=== PATIENT | female | born 1970 | race Caucasian/White ===

== ENCOUNTER 2016-10-15 07:41 | Observation (INO) | payer OTHER ==
[2016-09-30 14:23] VITALS: BMI 36.0
--- NOTE | 2016-09-30 15:06 | PAT Medication Instructions ---
Service Date Sep 30, 2016. 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 Instructions For Your Scheduled Surgery Methylprednisolone (Medrol), 4 MG PO UD (for neck pain; pt thinks to be completed prior to surgery) - Hold the following medications the morning of surgery: Fwxjmnnadmxuy-Tqycceitpvpyp-Zg (Tylenol Sinus Congestion), 1 TAB PO PRN Cholecalciferol (Vitamin D3), 1 TAB PO QAM Phentermine Hcl (Adipex P), 37.5 MG PO QAM Acetazolamide (Diamox), 1,000 MG PO QAM - Take the following medications the morning of surgery with a sip of water: [Proair Hfa], 2 PUFFS INH QID PRN for RN Levothyroxine Sodium (Levothyroxine Sodium), 1 TAB PO QAM Hydrocodone/Acetaminophen 5MG/325MG ([place] 5MG/325MG), 1 TABLET PO Q4H PRN for N (okay to take up to 4 hours prior to surgery if needed) Oxycodone Ir (Roxicodone Ir), 5 MG PO Q4H PRN for Severe Pain (okay to take up to 4 hours prior to surgery if needed) - Take the following medications as scheduled the night before surgery: [Proair Hfa], 2 PUFFS INH QID PRN for RN Oeikysumfrflz-Jjmvgnghqrjae-Ww (Tylenol Sinus Congestion), 1 TAB PO PRN Omeprazole (Prilosec), 20 MG PO QPM Citalopram Hydrobromide (Celexa), 40 MG PO QPM Hydrocodone/Acetaminophen 5MG/325MG ([place] 5MG/325MG), 1 TABLET PO Q4H PRN for N Oxycodone Ir (Roxicodone Ir), 5 MG PO Q4H PRN for Severe Pain If you have any questions please call us at [phone] (Neris Bansal PA-C) or [phone] or [phone]
[2016-09-30 15:52] LABS: BASO % 0.6 %; BASO ABS # 0.03 K/uL (0-0.2); COMPLETE YES; EOS % 2.5 %; HEMATOCRIT 38.2 % (37-47); IG% 0.2 %; LYMPH % 23.5 %; LYMPH ABS # 1.13 K/uL (1.2-3.4); MEAN CELL VOLUME 80.1 fL (80-100); MEAN CORPUSCULAR HEMOGLOBIN 23.5 pg (25-34); MEAN CORPUSCULAR HGB CONC 29.3 g/dl (32-36); MEAN PLATELET VOLUME 10.3 fL (7.4-10.4); MONO % 7.9 %; NEUT % 65.3 %; PLATELET COUNT 288 K/uL (130-400); RED BLOOD COUNT 4.77 M/uL (4.2-5.4)
[2016-09-30 15:53] LABS: URINE APPEARANCE CLEAR (CLEAR); URINE BILIRUBIN NEG (NEG); URINE COLOR DK YELLOW; URINE NITRITE NEG (NEG); URINE SPECIFIC GRAVITY 1.023 (1.000-1.030); UROBILINOGEN NEG (NEG)
--- NOTE | 2016-09-30 15:57 | DIAGNOSTIC IMAGING REPORT ---
CHEST 2 VIEWS ROUTINE CLINICAL HISTORY: PAT preoperative evaluation COMPARISON STUDY: No previous studies for comparison. FINDINGS: The bones soft tissues and hemidiaphragms are normal. The cardiomediastinal silhouette is normal. The lungs are clear. The pulmonary vasculature is normal. IMPRESSION: Negative chest. Electronically signed by: Bienvenido Oconnell M.D. 09/30/2016 3:56 PM Dictated Date/Time: 09/30/2016 3:56 PM
[2016-09-30 16:02] LABS: CREATININE 1.2 mg/dl (0.60-1.20)
[2016-09-30 16:03] LABS: BUN/CREATININE RATIO 16.8 (10-20); POTASSIUM 3.9 mmol/L (3.5-5.1)
[2016-09-30 16:06] LABS: MANUAL MICROSCOPIC REQUIRED? NO; REVIEW REQ? NO
[2016-10-15] VITALS (13 sets, daily range): BP systolic 110–136; BP diastolic 72–99; PULSE 58–94; TEMP 36.5–36.7; O2SAT 93–100; Ht 157.5 cm; Wt 90.5 kg
[~2016-10-15] VITALS: Ht 157.5 cm; Wt 90.5 kg
[~2016-10-15 07:41] MED LIST: ACET500C35 PO; CHOL1000 PO; CITA40TA12 PO; CLINDAMYCIN 600 MG/54 ML D5W IV SCH; CLINDAMYCIN PHOS 150 MG/ML 2 ML VIAL IV SCH; CeleBREX 200 MG CAP PO SCH; HYDR-5688 PO; LACTATED RINGER'S 1000ML 1,000 ML IV SCH; LEVO150T9 PO; METH1TAB81 PO; OXYC1TAB3 PO; PHEN1TAB PO; PHEN37.585 PO; PREGABALIN 75 MG CAP PO SCH; PRLSR20 PO; PROAIR HFA INH
[2016-10-15] MEDS ORDERED: ATROPINE SULFATE 0.1 MG/ML 5ML SYR IV PRN (09:15)
[2016-10-15] MEDS ORDERED: ONDANSETRON INJ 2 MG/ML 2 ML VIAL IV PRN ×2 (09:15→12:00)
[2016-10-15] MEDS ORDERED: EpHEDrine SULFATE INJ 50 MG/ML AMP IV PRN (09:15)
[2016-10-15] MEDS ORDERED: PHENYLEPHRINE 100MCG/ML 5ML SYR IV PRN (09:15)
[2016-10-15] MEDS ORDERED: MIDAZOLAM HCL 1 MG/ML 2ML VIAL ONE (09:17)
[2016-10-15] MEDS ORDERED: FENTANYL CITRATE INJ 50 MCG/1 ML 2 ML VIAL ONE ×3 (09:17→10:36)
--- NOTE | 2016-10-15 09:33 | History and Physical ---
History & Physical Date Oct 15, 2016. Chief Complaint neck pain and R arm pain/numbness History of Present Illness The patient is a 46 year old female with complaints of above that began beginning of August with severe arm pain. she has a hx of chronic neck pain that was treated by Dr. Rachel of pain management in past, but radicular symptoms were more recent and prompted surgical eval. She has a hx of chronic weakness in R hand after ORIF of distal humerus fx as child. She denies L arm pain or numbness. no clear myelopathic symptoms. no balance issues. MRI shows large central and eccentric R HNP C5-6 with paracentral left C4-5 HNP causing foraminal stenosis. she has no myelomalacia. Hx of thyroidectomy. Past Medical/Surgical History GERD hypothyroidism hx of thyroid CA s/p thyroidectomy vit D defic hx of gastric bypass Hyster Tonsillectomy Asthma ORIF RUE arline partial ethmoidectomy nephrolithiasis anemia depression Additional History Hepatic Disease: No Endocrine Disorder: Yes Kidney Disease: No Hypertension: No Heart Disease: No Bleeding Tendencies: No Infectious Diseases: No Allergies Coded Allergies: Cephalexin (Verified Allergy, Unknown, HIVES HOT AND ITCHY, 10/15/16) Ciprofloxacin (Verified Allergy, Unknown, HIVES HOT ITCHY, 10/15/16) Penicillins (Verified Allergy, Unknown, HIVES, HOT AND ITCHY, 10/15/16) Prednisone (Verified Allergy, Unknown, HIGH DOSES-HIVES AND HOT ITCHY ALL OVER, 10/15/16) Home Medications Scheduled Acetazolamide (Diamox), 1,000 MG PO QAM Cholecalciferol (Vitamin D3), 1 TAB PO QAM Citalopram Hydrobromide (Celexa), 40 MG PO QPM Levothyroxine Sodium (Levothyroxine Sodium), 1 TAB PO QAM Omeprazole (Prilosec), 20 MG PO QPM Phentermine Hcl (Adipex P), 37.5 MG PO QAM Okrxcmaagtbes-Rqcitcmiavwuj-Gp (Tylenol Sinus Congestion), 1 TAB PO PRN Scheduled PRN Hydrocodone/Acetaminophen 5MG/325MG ([place] 5MG/325MG), 1 TABLET PO Q4H PRN for N Oxycodone Ir (Roxicodone Ir), 5 MG PO Q4H PRN for Severe Pain [Proair Hfa], 2 PUFFS INH QID PRN for RN Physical Examination Skin: warm/dry Eyes: normal inspection ENT: normal ENT inspection (thyroidectomy scar just above clavicle at base of neck-below planned ACDF incision-skin supple in neck), pharynx normal Head: normocephalic, atraumatic Neck: supple, no adenopathy, trachea midline Respiratory/Chest: lungs clear Cardiovascular: regular rate, rhythm Back: normal inspection Extremities: normal inspection (scar R elbow with mild flexion contracture) Neurologic/Psych: no motor/sensory deficits (except numbness in ulnar digits RUE, trace weakness in wrist extension on left and positive spurlings to left), alert, normal reflexes, oriented x 3 Diagnosis C4-6 HNP with RUE radiculopathy Plan of Treatment C4-6 ACDF, risk of complications due to prior thyroidectomy reviewed but tissue over incision appears healthy
[2016-10-15] MEDS ORDERED: BACITRACIN 50000 UNIT VIAL ONE (09:38)
[2016-10-15] MEDS ORDERED: THROMBIN 5000 UNITS KIT ONE ×2 (09:38→10:15)
[2016-10-15] MEDS ORDERED: HYDROmorphone INJ 2 MG/ML SYR/VIAL ONE ×2 (10:27→11:24)
[2016-10-15] MEDS ORDERED: DEXAMETHASONE SOD INJ 4 MG/ML VIAL ONE (10:38)
[2016-10-15] MEDS ORDERED: ROCURONIUM BROMIDE 10 MG/ML 5 ML VIAL ONE (10:38)
[2016-10-15] MEDS ORDERED: ONDANSETRON INJ 2 MG/ML 2 ML VIAL ONE ×2 (10:38→11:24)
[2016-10-15] MEDS ORDERED: PROPOFOL IV EMULSION 10 MG/ML 20 ML VIAL IV ONE (10:38)
[2016-10-15] MEDS ORDERED: LIDOCAINE HCL 2% 2 ML VIAL (20MG/ML) ONE (10:38)
[2016-10-15] MEDS ORDERED: PHENYLEPHRINE 100MCG/ML 5ML SYR ONE ×2 (10:38→11:24)
[2016-10-15] MEDS ORDERED: FLOSEAL HEMOSTATIC MATRIX 10ML TOP ONE (11:20)
[2016-10-15] MEDS ORDERED: GLYCOPYRROLATE INJ 0.2 MG/ML VIAL ONE (11:24)
[2016-10-15] MEDS ORDERED: NEOSTIGMINE METHYLSULFATE 1 MG/ML 10ML VIAL ONE (11:24)
[2016-10-15] MEDS: HYDROmorphone INJ 2 MG/ML SYR/VIAL IV PRN ×6 (11:40→12:15)
--- NOTE | 2016-10-15 11:50 | [facility] Post Operative Brief Note ---
Immediate Operative Summary Operative Date Oct 15, 2016. Pre-Operative Diagnosis C4-6 Herniated Nucleus Pulposus with Right Upper Extremity Radiculopathy Post-Operative Diagnosis C4-6 Herniated Nucleus Pulposus with Right Upper Extremity Radiculopathy Procedure(s) Performed C4-C5, C5-C6 Anterior Cervical Discectomy and Fusion, Allograft and Peek Surgeon Dr Eloy Sandoval Curtain Worker Surgeon(s) Keith Mishra PA-C Estimated Blood Loss 20 cc Findings dict Specimens none per surgeon
--- NOTE | 2016-10-15 11:55 | DIAGNOSTIC IMAGING REPORT ---
CERVICAL 2 OR 3 VIEWS CLINICAL HISTORY: Anterior discectomy and fusion. COMPARISON STUDY: No previous studies for comparison. Fluoroscopy time: 9 seconds. FINDINGS: These 2 fluoroscopic images demonstrate findings consistent with C4-C5 and C5-C6 anterior discectomy and fusion. Hardware is intact. Surgical drain is in place. IMPRESSION: Expected findings following C4-C5 and C5-C6 anterior discectomies and fusion. Electronically signed by: Samuel Smith M.D. 10/15/2016 11:52 AM Dictated Date/Time: 10/15/2016 11:51 AM
[2016-10-15] MEDS ORDERED: NALOXONE HCL 0.4 MG/1 ML VIAL/CARP IV PRN (12:00)
[2016-10-15] MEDS ORDERED: LORAZEPAM 0.5 MG TAB PO PRN (12:00)
[2016-10-15] MEDS ORDERED: LORAZEPAM INJ 0.5 MG in SYRINGE 0.75 ML IV PRN (12:00)
[2016-10-15] MEDS ORDERED: ACETAMINOPHEN IV 1,000 MG in EMPTY BAG 0 ML IV PRN (12:00)
[2016-10-15] MEDS ORDERED: ALBUTEROL HFA INHALER 18 GM INH PRN (12:00)
[2016-10-15] MEDS ORDERED: HYDROmorphone INJ 0.5 MG/0.5 ML SYR IV PRN (12:00)
[2016-10-15] MEDS ORDERED: RACEPINEPHRINE 2.25% NEBU SOLN 0.5 ML VIAL INH PRN (12:00)
[2016-10-15] MEDS ORDERED: IV FLUIDS COMPLETED PRN (12:45)
[2016-10-15] MEDS ORDERED: INFLUENZA ADMINISTRATION CHARGE ONE (14:15)
[2016-10-15] MEDS ORDERED: INFLUENZA VIRUS QUAD VACCINE 0.5 ML SYR IM. ONE (14:15)
[2016-10-15] MEDS ORDERED: PNEUMOCOCCAL POLYSACCHARIDES 25 MCG/0.5 ML VIAL/SYR IM. ONE (14:30)
[2016-10-15] MEDS ORDERED: PNEUMOCOCCAL ADMINISTRATION CHARGE ONE (14:30)
--- NOTE | 2016-10-15 14:40 | Anesthesiology Progress Note ---
Anesthesia Post Op Note Date & Time Oct 15, 2016 at 14:40 Vital Signs Pain Intensity: 7.0 Vital Signs Past 12 Hours Date Time Temp Pulse Resp B/P Pulse Ox O2 Delivery O2 Flow Rate FiO2 10/15/16 14:21 36.7 74 16 129/84 100 Nasal Cannula 4.0 10/15/16 13:50 36.7 94 16 121/77 93 Nasal Cannula 4.0 10/15/16 13:20 Nasal Cannula 99.0 10/15/16 13:20 36.7 61 16 128/83 99 Nasal Cannula 4.0 10/15/16 13:20 36.7 61 16 128/83 99 Nasal Cannula 4.0 10/15/16 12:55 36.3 56 16 118/64 100 Nasal Cannula 3 10/15/16 12:41 48 16 10/15/16 12:41 48 16 100 10/15/16 12:40 137/77 10/15/16 12:36 47 9 10/15/16 12:36 48 9 100 10/15/16 12:35 120/63 10/15/16 12:31 65 9 10/15/16 12:31 64 9 99 10/15/16 12:30 130/59 10/15/16 12:26 50 7 100 10/15/16 12:26 50 7 10/15/16 12:25 129/85 10/15/16 12:24 50 10/15/16 12:24 49 14 100 10/15/16 12:20 133/75 10/15/16 12:19 72 16 100 10/15/16 12:19 73 16 10/15/16 12:15 130/69 10/15/16 12:14 54 12 10/15/16 12:14 54 12 100 10/15/16 12:11 143/73 10/15/16 12:09 53 11 100 10/15/16 12:09 52 11 10/15/16 12:08 142/75 10/15/16 12:07 71 20 10/15/16 12:07 72 20 100 10/15/16 12:06 156/114 10/15/16 12:02 57 15 10/15/16 12:02 58 15 100 10/15/16 12:01 161/103 10/15/16 12:00 66 17 10/15/16 12:00 65 17 100 10/15/16 11:56 170/93 10/15/16 11:55 62 16 10/15/16 11:55 63 16 100 10/15/16 11:50 57 12 10/15/16 11:50 56 12 168/95 100 10/15/16 11:45 59 16 162/101 100 10/15/16 11:45 58 16 10/15/16 11:40 67 10 10/15/16 11:40 67 10 156/104 100 10/15/16 11:38 159/91 10/15/16 11:30 36.4 73 16 154/97 100 Nasal Cannula 3 10/15/16 08:25 36.7 58 20 136/99 100 Room Air Notes Mental Status: alert / awake / arousable, participated in evaluation Pt Amnestic to Procedure: Yes Nausea / Vomiting: adequately controlled Pain: adequately controlled Airway Patency, RR, SpO2: stable & adequate BP & HR: stable & adequate Hydration State: stable & adequate Anesthetic Complications: no major complications apparent
[2016-10-15] MEDS ORDERED: HYDROmorphone INJ 1 MG/ML SYR ONE (14:49)
[2016-10-15] MEDS ORDERED: HYDROmorphone INJ 1 MG/ML SYR IV PRN ×2 (15:45)
[2016-10-15] MEDS: SODIUM CHLORIDE 0.9% 1000ML 1,000 ML IV SCH (17:34)
[2016-10-15] MEDS: CLINDAMYCIN IV 600 MG in DEXTROSE 5% ADD-VANTAGE 50ML 50 ML IV SCH (17:35)
[2016-10-15] MEDS: OXYCODONE HCL IR 5 MG TAB (IMMEDIATE RELEASE) PO PRN (18:25)
[2016-10-15] MEDS ORDERED: CITALOPRAM 40 MG TAB PO SCH (21:00)
[2016-10-15] MEDS ORDERED: PANTOprazole SOD 40 MG TAB PO SCH (21:00)
[2016-10-16] VITALS (12 sets, daily range): BP systolic 109–139; BP diastolic 73–83; PULSE 53–77; TEMP 36.5–36.9; O2SAT 95–100
[2016-10-16] MEDS: SODIUM CHLORIDE 0.9% 1000ML 1,000 ML IV SCH (00:25)
[2016-10-16] MEDS: CLINDAMYCIN IV 600 MG in DEXTROSE 5% ADD-VANTAGE 50ML 50 ML IV SCH ×2 (02:19→09:30)
[2016-10-16] MEDS: OXYCODONE HCL IR 5 MG TAB (IMMEDIATE RELEASE) PO PRN ×2 (02:30→09:25)
[2016-10-16] MEDS ORDERED: LEVOTHYROXINE 150 MCG TAB PO SCH (06:00)
--- NOTE | 2016-10-16 08:52 | Anesthesiology Progress Note ---
Anesthesia Post Op Note Date & Time Oct 16, 2016 at 08:50 Vital Signs Vital Signs Past 12 Hours Date Time Temp Pulse Resp B/P Pulse Ox O2 Delivery O2 Flow Rate FiO2 10/16/16 08:20 36.7 65 16 139/83 99 Room Air 10/16/16 07:30 97 Room Air 10/16/16 07:25 16 100 Room Air 10/16/16 06:05 36.9 63 16 123/79 97 Room Air 10/16/16 04:14 36.5 77 16 114/73 99 Room Air 10/16/16 03:55 53 14 95 Room Air 10/16/16 02:24 36.5 61 16 117/76 97 Room Air 10/16/16 02:22 36.5 61 16 117/76 98 Room Air 10/16/16 00:26 36.6 64 16 109/73 95 Room Air 10/15/16 23:44 76 16 97 Room Air 10/15/16 23:10 Room Air 10/15/16 22:19 36.6 60 18 112/73 94 Room Air 10/15/16 21:05 36.5 90 18 125/72 97 Nasal Cannula 2.0 Notes Mental Status: alert / awake / arousable, participated in evaluation Pt Amnestic to Procedure: Yes Nausea / Vomiting: adequately controlled Pain: adequately controlled Airway Patency, RR, SpO2: stable & adequate BP & HR: stable & adequate Hydration State: stable & adequate Anesthetic Complications: no major complications apparent
[2016-10-16] MEDS ORDERED: AcetaZOLAMIDE 500 MG CAPCR PO SCH (09:00)
[2016-10-16] MEDS ORDERED: HYDR-5688 PO (10:50)
--- NOTE | 2016-10-16 10:50 | Discharge Instructions ---
Discharge Instructions Date of Service Oct 16, 2016. Admission Reason for Admission: Spinal Stenosis Discharge Discharge Diagnosis / Problem: same Discharge Goals Goal(s): Decrease discomfort Activity Recommendations Activity Limitations: per Instructions/Follow-up section . Instructions / Follow-Up Instructions / Follow-Up ACTIVITY RECOMMENDATIONS: SELF CARE INSTRUCTIONS AFTER CERVICAL FUSIONS 1. No smoking. Smoking drastically decreases the chance of a solid fusion. 2. No bending, lifting more than 5 pounds, or twisting (roll like a log when turning in bed). 3. You may shower 3 days after surgery. Thoroughly dry wound. Do not soak in the tub. 4. Cervical collar: Must be worn at all times including sleeping. You may remove the brace only to bath, eat and if you are sitting in a recliner. 5. Please walk as much as you can for exercise. Gradually increase the distance that you walk as your endurance increases. SPECIAL CARE INSTRUCTIONS: VERY IMPORTANT TO READ AND REVIEW A. Do not take any anti-inflammatory medications (i.e. Indocin, Advil, Aspirin, Naprosyn, Aleve, Motrin, etc.) as these may inhibit the chance of a solid fusion. Tylenol is okay to take. B. Your surgical incision has been closed with a cosmetic suture under the skin that will dissolve in about 6 weeks. In 14 days, you can use a pair of clean scissors and cut the suture that is left outside of the skin at the ends of your incision. C. Complications are uncommon, but please contact us if you have any signs or symptoms of: 1. wound infection (fever higher than 102.5 degrees F, redness, separation of wound, drainage, or increasing pain from the incision) 2. blood clots in legs (pain, swelling, redness and warmth in legs) 3. urinary tract infection (fever higher than 102.5 degrees, burning upon urination or increased frequency of urination) 4. nerve problems (inability to walk on your toes or heels, numbness, loss of bowel or bladder control) 5. any other symptoms that concern you. D. Please call the office at if you have any concerns or questions about your operation or recovery. MANAGING PAIN AFTER SPINAL SURGERY 1. Narcotic medication is intended for short-term use and will be provided for surgical pain. Surgical pain usually lasts for a period of 4-6 weeks. Narcotic medication includes Percocet, Vicodin, Darvocet, Tylenol #3 or Lortab. 2. Longer-term pain is more appropriately treated with non-narcotic medication such as Tylenol ES. 3. Muscle spasm is not appropriately treated with narcotics. Muscle relaxers such as Soma, Flexeril or Skelaxin can be used along with Tylenol ES. 4. Remember that we all live with some "aches and pains". This is not unusual or uncommon after an injury or as we get older. 5. We will provide appropriate medication within the normal guidelines of their prescribed use. We will also be very cautious and aware of potential abuse and extended duration of patients' medication needs. 6. Please allow 2-3 days to process refills. Prescriptions will not be mailed but must be picked up at the office. FOLLOW UP VISIT: Keep your scheduled follow-up appointment. Any questions, please call the office at . Current Hospital Diet Patient's current hospital diet: Clear Liquid Diet Discharge Diet Recommended Diet: Regular Diet Procedures Procedures Performed: C4-C5, C5-C6 Anterior Cervical Discectomy and Fusion, Allograft and Peek Pending Studies Studies pending at discharge: no Medical Emergencies . Who to Call and When: Medical Emergencies: If at any time you feel your situation is an emergency, please call 911 immediately. . Non-Emergent Contact Non-Emergency issues call your: Surgeon . "Provider Documentation" section prepared by Eloy Sandoval. VTE Core Measure Inpt VTE Proph given/why not?: SCD's [place] Drug Monitoring Program Search Results: patient reviewed within database, no issues identified
--- NOTE | 2016-10-16 10:52 | Orthopedic Progress Note ---
Orthopedic Progress Note Date of Service Oct 16, 2016. Subjective Post OP Day: 1 Reports: feeling well, pain controlled w PO medications, Denies: SOB, calf pain , chest pain, complaints, light headedness, nausea / vomiting, using STONECUTTER Objective calves soft nontender, N/V intact, dressing C/D/I, A&O x3 Date Time Temp Pulse Resp B/P Pulse Ox O2 Delivery O2 Flow Rate FiO2 10/16/16 08:20 36.7 65 16 139/83 99 Room Air 10/16/16 07:30 97 Room Air 10/16/16 07:25 16 100 Room Air 10/16/16 06:05 36.9 63 16 123/79 97 Room Air 10/16/16 04:14 36.5 77 16 114/73 99 Room Air 10/16/16 03:55 53 14 95 Room Air 10/16/16 02:24 36.5 61 16 117/76 97 Room Air 10/16/16 02:22 36.5 61 16 117/76 98 Room Air 10/16/16 00:26 36.6 64 16 109/73 95 Room Air 10/15/16 23:44 76 16 97 Room Air 10/15/16 23:10 Room Air 10/15/16 22:19 36.6 60 18 112/73 94 Room Air 10/15/16 21:05 36.5 90 18 125/72 97 Nasal Cannula 2.0 10/15/16 20:20 36.7 62 16 130/81 96 Room Air 10/15/16 20:18 68 14 97 Room Air 10/15/16 18:20 36.7 61 16 115/79 97 Room Air 10/15/16 16:21 36.6 64 16 112/72 96 Room Air 10/15/16 15:25 36.7 67 16 110/73 99 Room Air 10/15/16 15:07 62 18 98 Room Air 10/15/16 14:21 36.7 74 16 129/84 100 Nasal Cannula 4.0 10/15/16 13:50 36.7 94 16 121/77 93 Nasal Cannula 4.0 10/15/16 13:20 Nasal Cannula 99.0 10/15/16 13:20 36.7 61 16 128/83 99 Nasal Cannula 4.0 10/15/16 13:20 36.7 61 16 128/83 99 Nasal Cannula 4.0 10/15/16 13:20 Nasal Cannula 4.0 10/15/16 12:55 36.3 56 16 118/64 100 Nasal Cannula 3 10/15/16 12:41 48 16 10/15/16 12:41 48 16 100 10/15/16 12:40 137/77 10/15/16 12:36 47 9 10/15/16 12:36 48 9 100 10/15/16 12:35 120/63 10/15/16 12:31 65 9 10/15/16 12:31 64 9 99 10/15/16 12:30 130/59 10/15/16 12:26 50 7 100 10/15/16 12:26 50 7 10/15/16 12:25 129/85 10/15/16 12:24 50 10/15/16 12:24 49 14 100 10/15/16 12:20 133/75 10/15/16 12:19 72 16 100 10/15/16 12:19 73 16 10/15/16 12:15 130/69 10/15/16 12:14 54 12 10/15/16 12:14 54 12 100 10/15/16 12:11 143/73 10/15/16 12:09 53 11 100 10/15/16 12:09 52 11 10/15/16 12:08 142/75 10/15/16 12:07 71 20 10/15/16 12:07 72 20 100 10/15/16 12:06 156/114 10/15/16 12:02 57 15 10/15/16 12:02 58 15 100 10/15/16 12:01 161/103 10/15/16 12:00 66 17 10/15/16 12:00 65 17 100 10/15/16 11:56 170/93 10/15/16 11:55 62 16 10/15/16 11:55 63 16 100 10/15/16 11:50 57 12 10/15/16 11:50 56 12 168/95 100 10/15/16 11:45 59 16 162/101 100 10/15/16 11:45 58 16 10/15/16 11:40 67 10 10/15/16 11:40 67 10 156/104 100 10/15/16 11:38 159/91 10/15/16 11:30 36.4 73 16 154/97 100 Nasal Cannula 3 Assessment & Plan Assessment: preop numbness resolved, pleased, shimon soft diet, walking independently Plan: doing well, d/c home
--- NOTE | 2016-10-16 11:07 | [facility] Operative Report ---
Operative Report Operative Date Oct 16, 2016. Pre-Operative Diagnosis C4-6 Herniated Nucleus Pulposus with Right Upper Extremity Radiculopathy Post-Operative Diagnosis same Procedure(s) Performed ACDF C4-[address] Eloy Sandoval Outbound Sales Representative Surgeon(s) Keith Mishra PA-C Estimated Blood Loss 20 cc Findings dict Specimens none per surgeon Drains 1 Complication(s) None Description of Procedure POSTOPERATIVE DIAGNOSES: Same. PROCEDURES: 1. C4-6 anterior cervical discectomy and fusion and application of LDR PEEK intervertebral spacer with local autograft and DBM putty. 2. Anterior cervical instrumentation C4-6 with LDR anterior cervical blades PROCEDURE: After identification of the patient and operative level, patient was brought to the OR where they underwent induction of general anesthesia. Patient was then positioned supine on the Eric OR table with all bony prominences well padded. Care was taken to avoid pressure on all bony prominences. Arms tucked to the sides and well padded. Shoulders were taped distally. Anterior neck was sterilely prepped and draped in usual fashion. Antibiotics were administered. Timeout was performed. Level was confirmed. A transverse skin incision was made on the right side of the neck at the level of the cricoid cartilage. I divided the platysma in line with the incision and performed routine anterior cervical exposure, blunt dissection of medial sternocleidomastoid. I identified the presumptive disc spaces and marked it with a marker and fluoroscopy. I then mobilized the longus colli and placed a self-retaining anterior cervical retractor and placed [place] pins in the body of C4 and C6. After placement of the pins, I applied slight distraction across the pins and then did a complete discectomy at C4-5 and C5-6, I took down the posterior osteophytes with a winston, removed the posterior annulus and the PLL, and did foraminotomies as necessary to decompress the foramina bilaterally. I passed the probe along the nerve roots at each level and made sure they were free of compression, I then decorticated the endplates at C4-5 and 5-6 with a high speed [place] and determined graft size with trial sizers. I then tamped PEEK cages filled with local bone and DBM putty into position and checked position with fluoroscopy, released [place] distraction, applied bone wax over the holes and then inserted LDR blade plates through the cage into the vertebral body of C4-5 and C5-6. After insertion of the blades, I obtained final x-rays, I irrigated, applied FloSeal for hemostasis, put a small round drain and closed in layered fashion. All sponge and needle counts were correct at the end of the case. I attest to the content of the Intraoperative Record and any orders documented therein. Any exceptions are noted below.
--- NOTE | 2016-10-29 09:32 | Discharge Summary ---
Orthopedic Discharge Summary Admission Date/Reason Oct 15, 2016 at 11:53 Spinal Stenosis. Discharge Date/Disposition Oct 16, 2016 Home Diagnosis Principal Diagnosis: cervical stenosis Procedure(s) Performed ACDF C4-6 Medication Reconciliation Continued Medications: Acetazolamide (Diamox) 500 Mg Cap 1000 MG PO QAM Cholecalciferol (Vitamin D3) 1,000 Unit Tab 1 TAB PO QAM for 90 Days, #90 TAB 3 Refills Citalopram Hydrobromide (Celexa) 40 Mg Tab 40 MG PO QPM, TAB Hydrocodone/Acetaminophen 5MG/325MG ([place] 5MG/325MG) Tab 1 TABLET PO Q4H PRN for N, #60 TAB (This prescription has been renewed) PRN PAIN Levothyroxine Sodium (Levothyroxine Sodium) 150 Mcg Tab 1 TAB PO QAM for 90 Days, #90 TAB 3 Refills Omeprazole (Prilosec) 20 Mg Capcr 20 MG PO QPM, CAP Phentermine Hcl (Adipex P) 37.5 Mg Tab 37.5 MG PO QAM, TAB Lixaiikfsffua-Hxxedgzxoxppg-Qu (Tylenol Sinus Congestion) 1 Tab Tab 1 TAB PO PRN [Proair Hfa] () 2 PUFFS INH QID PRN for RN Discontinued Medications: Oxycodone Ir (Roxicodone Ir) 5 Mg Tab 5 MG PO Q4H PRN for Severe Pain, TAB Admission Physical Exam As per Admitting History & Physical. Hospital Course She was admitted for elective cervical surgery and underwent the procedure without complications. She remained stable while inpatient and had pain controlled. She was ambulatory and was discharged POD1. Discharge Instructions Please refer to the electronic Patient Visit Report (Discharge Instructions) for additional information.
== END 2016-10-16 12:57 | disposition home or self-care (01) ==
LOC: ENRESERVDT → ENRESERVTM → C.ACU 07:41 → C.3E 11:53
PROVIDERS: ADMIT Orthopaedic Surgery Orthopaedic Surgery of the Spine; ATTEND Orthopaedic Surgery Orthopaedic Surgery of the Spine
DX: M50.20 Other cervical disc displacement, unspecified cervical region (principal); K21.9 Gastro-esophageal reflux disease without esophagitis; E30.9 Disorder of puberty, unspecified; J45.909 Unspecified asthma, uncomplicated; F32.9 Major depressive disorder, single episode, unspecified; Z98.84 Bariatric surgery status